=== PATIENT | male | born 1985 | race Two or more races ===

== ENCOUNTER 2016-11-10 10:31 | Emergency (ER) | payer SELFPAY ==
[~2016-11-10] VITALS: Ht 170.2 cm; Wt 68.0 kg
[2016-11-10 10:31] VITALS: BP 129/74
== END 2016-11-10 11:26 | disposition home or self-care (01) ==
LOC: ER 10:32
DX: S62.306A Unspecified fracture of fifth metacarpal bone, right hand, initial encounter for closed fracture (principal); F17.200 Nicotine dependence, unspecified, uncomplicated; X58.XXXA Exposure to other specified factors, initial encounter; Y93.73 Activity, racquet and hand sports; Y92.89 Other specified places as the place of occurrence of the external cause; Y99.9 Unspecified external cause status
CPT/HCPCS: 73130-TC; A4606; Z7610